=== PATIENT | male | born 1995 | race American Indian/Alaskan Native ===

== ENCOUNTER 2020-06-02 01:20 | Emergency (ER) | payer SELFPAY ==
[2020-06-02 01:40] VITALS: BP 138/59
--- NOTE | 2020-06-02 02:16 | Emergency Department Report ---
ED General Adult HPI - General Chief complaint: Sore Throat Stated complaint: WEAKNESS, N/V Source: patient Mode of arrival: Ambulatory Limitations: No Limitations - History of Present Illness Initial comments: Patient is a 24-year-old -Armenian male with no past medical history presents to the ED with complaint of acute onset persistent severe frontal sinus pressure and headache, nasal and sinus congestion, severe sore throat with dysphagia, mild dry cough and intermittent nausea and vomiting for the last 3 days. Patient states that his sore throat symptoms got worse in the last 24 hours such that swallowing food or drinking water makes the pain worse. Patient states that he has been taking [id number] medications with no relief. Patient denies fever, chills, diarrhea, abdominal pain, chest pain, dyspnea,, dysuria, syncope, seizures, vaginal bleeding or traumatic injury. MD Complaint: Sore throat; nausea, dry cough, nasal and sinus congestion; frontal headach -: Sudden, days(s) (3) Location: head, chest Radiation: non-radiation Severity scale (0 -10): 2 Quality: aching, dull Consistency: intermittent Worsens with: none Associated Symptoms: denies other symptoms, cough, headaches, loss of appetite, nausea/vomiting. denies: confusion, chest pain, diaphoresis, fever/chills, malaise, rash, seizure, shortness of breath, syncope Treatments Prior to Arrival: none - Related Data Previous Rx's Medication Instructions Recorded Last Taken Type Azithromycin [Zithromax Z-CHERYL] 250 mg PO DAILY #6 tablet 06/02/20 Unknown Rx Ibuprofen [Motrin] 800 mg PO Q8HR PRN #24 tablet 06/02/20 Unknown Rx Lidocaine Viscous 2% 10 ml PO Q6H PRN #120 ml 06/02/20 Unknown Rx Ondansetron [Zofran Odt] 4 mg PO Q8HR PRN #15 tab.rapdis 06/02/20 Unknown Rx predniSONE [Deltasone] 40 mg PO QDAY #10 tab 06/02/20 Unknown Rx Allergies Allergy/AdvReac Type Severity Reaction Status Date / Time No Known Allergies Allergy Unverified 06/02/20 01:41 ED Review of Systems ROS: Stated complaint: WEAKNESS, N/V Other details as noted in HPI Constitutional: denies: chills, fever Eyes: denies: eye pain, eye discharge, vision change ENT: throat pain, congestion, other (frontal sinus congestion and pressure). denies: ear pain Respiratory: denies: cough, shortness of breath, wheezing Cardiovascular: denies: chest pain, palpitations Endocrine: no symptoms reported Gastrointestinal: nausea, vomiting. denies: abdominal pain, diarrhea Genitourinary: denies: urgency, dysuria Musculoskeletal: denies: back pain, joint swelling, arthralgia Skin: denies: rash, lesions Neurological: headache. denies: weakness, paresthesias Psychiatric: denies: anxiety, depression Hematological/Lymphatic: denies: easy bleeding, easy bruising ED Past Medical Hx - Medications Home Medications: Home Medications Medication Instructions Recorded Confirmed Last Taken Type Azithromycin [Zithromax Z-CHERYL] 250 mg PO DAILY #6 tablet 06/02/20 Unknown Rx Ibuprofen [Motrin] 800 mg PO Q8HR PRN #24 tablet 06/02/20 Unknown Rx Lidocaine Viscous 2% 10 ml PO Q6H PRN #120 ml 06/02/20 Unknown Rx Ondansetron [Zofran Odt] 4 mg PO Q8HR PRN #15 tab.rapdis 06/02/20 Unknown Rx predniSONE [Deltasone] 40 mg PO QDAY #10 tab 06/02/20 Unknown Rx ED Physical Exam - General Limitations: No Limitations General appearance: alert, in no apparent distress, obese - Head Head exam: Present: atraumatic, normocephalic, normal inspection - Eye Eye exam: Present: normal appearance, PERRL, EOMI Pupils: Present: normal accommodation - ENT ENT exam: Present: normal exam, mucous membranes moist, TM's normal bilaterally, normal external ear exam, other (Left sided tonsillar swelling with erythema; uvulitis midline, no sign of peritonsillar abscess) - Neck Neck exam: Present: normal inspection, full ROM, lymphadenopathy - Respiratory Respiratory exam: Present: normal lung sounds bilaterally. Absent: respiratory distress, wheezes, rales, rhonchi, chest wall tenderness, accessory muscle use, decreased breath sounds - Cardiovascular Cardiovascular Exam: Present: regular rate, normal rhythm, normal heart sounds. Absent: systolic murmur, diastolic murmur, rubs, gallop - GI/Abdominal GI/Abdominal exam: Present: soft, normal bowel sounds. Absent: tenderness, guarding, rebound, hyperactive bowel sounds, hypoactive bowel sounds, organomegaly - Rectal Rectal exam: Present: deferred - Extremities Exam Extremities exam: Present: normal inspection, full ROM, normal capillary refill - Back Exam Back exam: Present: normal inspection, full ROM. Absent: tenderness, CVA tenderness (R), muscle spasm, paraspinal tenderness, vertebral tenderness - Neurological Exam Neurological exam: Present: alert, oriented X3, CN II-XII intact, normal gait, reflexes normal - Psychiatric Psychiatric exam: Present: normal affect, normal mood - Skin Skin exam: Present: warm, dry, intact, normal color. Absent: rash ED Course Vital Signs 06/02/20 01:40 Temperature 98.3 F Pulse Rate 76 Respiratory 16 Rate Blood Pressure 138/59 [Right] O2 Sat by Pulse 96 Oximetry ED Medical Decision Making - Radiology Data Radiology results: report reviewed, image reviewed - Medical Decision Making This is a 24-year-old -Armenian male with no past medical history presents to the ED with complaint of acute onset persistent severe frontal sinus pressure and headache, nasal and sinus congestion, severe sore throat with dysphagia, mild dry cough and intermittent nausea and vomiting for the last 3 days. Patient states that his sore throat symptoms got worse in the last 24 hours such that swallowing food or drinking water makes the pain worse. Patient states that he has been taking [id number] medications with no relief. In the ED, patient is alert and oriented x3 and is not in any distress. based on the history and physical exam findings, patient was discharged home on medications and advised to follow-up with his primary care physician in 5 to 7 days for reevaluation. Patient is advised return to the ED immediately if symptoms get worse. - Differential Diagnosis Pharyngitis; Tonsillitis; URI; Sinusitis Critical care attestation.: If time is entered above; I have spent that time in minutes in the direct care of this critically ill patient, excluding procedure time. ED Disposition Clinical Impression: Acute bacterial tonsillitis, Acute upper respiratory infection, Nausea and vomiting in adult patient Disposition: TO HOME OR SELFCARE Is pt being admited?: No Does the pt Need Aspirin: No Condition: Stable Instructions: Tonsillitis, [id number], Nausea and Vomiting, Adult, [id number], Upper Respiratory Infection, Adult, [id number] Additional Instructions: Take medication with food, drink plenty of fluids and follow-up with your primary care physician in 7 to 10 days for reevaluation. Return to the ED immediately if symptoms get worse. Prescriptions: predniSONE [Deltasone] 40 mg PO QDAY #10 tab Lidocaine Viscous 2% 10 ml PO Q6H PRN #120 ml PRN Reason: Sore Throat Ibuprofen [Motrin] 800 mg PO Q8HR PRN #24 tablet PRN Reason: Pain , Severe (7-10) Azithromycin [Zithromax Z-CHERYL] 250 mg PO DAILY #6 tablet Ondansetron [Zofran Odt] 4 mg PO Q8HR PRN #15 tab.rapdis PRN Reason: Nausea Referrals: [facility] [Provider Group] - 3-5 Days Time of Disposition: 02:17 Print Language: BURUNDI[place]
== END 2020-06-02 03:30 | disposition home or self-care (01) ==
LOC: ED 01:20
DX: J03.80 Acute tonsillitis due to other specified organisms (principal); B96.89 Other specified bacterial agents as the cause of diseases classified elsewhere; R11.2 Nausea with vomiting, unspecified; Z79.899 Other long term (current) drug therapy
CPT/HCPCS: 99281

== ENCOUNTER 2020-09-28 16:25 | Emergency (ER) | payer SELFPAY | END 2020-09-28 17:11 | LOC: ED 16:25 | CPT/HCPCS: 36415; 70450; 80053; 82550; 82553; 82962; 84484; 85007; 85025; 85610; 85670; 85730 ==